=== PATIENT | male | born 1945 | race Caucasian/White ===

== ENCOUNTER 2016-09-26 10:30 | Outpatient (RCR) | payer MEDICARE ==
[~2016-09-26 10:30] MED LIST: CEFACLOR500 M2 PO; CLARITIN 1010 MG/TAB PO; FLOMAX 0.40.4 MG/CAP PO; GLUCOPHAGE XR500 M1 PO; PROTONIX 40MG T40 MG PO; ZOCOR 10MG10 MG PO; ZOLOFT 100MG100 MG PO
== END 2016-09-27 10:10 | disposition home or self-care (01) ==
LOC: WSST 10:30
DX: K21.9 Gastro-esophageal reflux disease without esophagitis (principal)
CPT/HCPCS: G9171-GN; G9172-GN; G9173-GN

== ENCOUNTER → 2024-01-31 | Outpatient (CLI) | payer MEDICARE | LOC: DIA.ED 10:09 | DX: E11.40 Type 2 diabetes mellitus with diabetic neuropathy, unspecified (principal); Z79.84 Long term (current) use of oral hypoglycemic drugs; E78.5 Hyperlipidemia, unspecified; E03.9 Hypothyroidism, unspecified ==